=== PATIENT | female | born 1995 | race Two or more races ===

== ENCOUNTER 2022-05-04 10:00 | Emergency (ER) | payer MEDICAID, OTHER ==
[~2022-05-04] VITALS: Ht 160 cm; Wt 104.5 kg
[2022-05-04] MEDS ORDERED: IBU600T PO (16:46)
[2022-05-04 17:06] VITALS: BP 133/81
== END 2022-05-04 17:06 | disposition home or self-care (01) ==
LOC: EDBD 10:00 → ER 10:00
DX: S09.8XXA Other specified injuries of head, initial encounter (principal); M79.18 Myalgia, other site; M54.2 Cervicalgia; V43.52XA Car driver injured in collision with other type car in traffic accident, initial encounter; Y93.89 Activity, other specified; Y92.488 Other paved roadways as the place of occurrence of the external cause; Y99.8 Other external cause status
CPT/HCPCS: 36415; 70450; 72125; 73080; 84702